=== PATIENT | female | born 1980 | race African-American/Black ===

== ENCOUNTER 2023-12-09 17:09 | Emergency (ER) | payer MEDICAID, OTHER ==
[~2023-12-09] VITALS: Ht 170.2 cm; Wt 96.0 kg
[2023-12-09 17:25] VITALS: O2SAT 99
[2023-12-09 17:44] VITALS: BP 131/84; PULSE 78; TEMP 98.3; O2SAT 99
[2023-12-09 18:45] VITALS: RESP 19
[2023-12-09] MEDS ORDERED: NAPR-681 MT (18:49)
[2023-12-09] MEDS ORDERED: AMOX1TAB16 MT (18:49)
[2023-12-09] MEDS ORDERED: HYDR-4001 MT (18:49)
[2023-12-09] MEDS ORDERED: SULF1TAB48 MT (18:52)
[2023-12-09] MEDS: TETANUS, DIPHTHERIA, PERTUSSIS VAC/PF 0.5ML (>10YR OLD) IM ONE (18:54)
[2023-12-09] MEDS: KETOROLAC 30MG/ML VIAL IM ONE (18:55)
[2023-12-09] MEDS: AMOXICILLIN/POTASSIUM CLAVULANATE 875/125MG TAB PO ONE (18:55)
[2023-12-09] MEDS: HYDROCODONE/ACETAMINOPHEN 5/325MG TABLET PO ONE (18:55)
== END 2023-12-09 19:53 | disposition home or self-care (01) ==
LOC: ER 17:09
DX: S61.411A Laceration without foreign body of right hand, initial encounter (principal); J45.909 Unspecified asthma, uncomplicated; Z88.5 Allergy status to narcotic agent; Z98.890 Other specified postprocedural states; Y04.0XXA Assault by unarmed brawl or fight, initial encounter; Y93.89 Activity, other specified; Y92.89 Other specified places as the place of occurrence of the external cause; Y99.8 Other external cause status
CPT/HCPCS: 90715; 90471; 96372; 99284; J1885; Z7610

== ENCOUNTER 2024-03-01 01:48 | Emergency (ER) | payer OTHER ==
[~2024-03-01] VITALS: Ht 170.2 cm; Wt 112.4 kg
[~2024-03-01 01:48] MED LIST: AMOX1TAB16 MT; HYDR-4001 MT; NAPR-681 MT; SULF1TAB48 MT
[2024-03-01 02:03] VITALS: BP 131/86; PULSE 85; RESP 16; O2SAT 100
[2024-03-01] MEDS ORDERED: KETOROLAC 30MG/ML VIAL IM ONE (02:15)
[2024-03-01 02:50] LABS: BASOPHILS % 0.7 % (0.0-2.0); DIFFERENTIAL COMMENT 0; HEMATOCRIT. 39.3 % (36.0-48.0); HEMOGLOBIN. 12.9 g/dL (12.0-16.0); LYMPHOCYTES % 31.4 % (20.0-50.0); MEAN CORPUSCULAR HEMOGLOBIN 25.5 pg (28.0-32.0); MEAN CORPUSCULAR HGB CONC 32.9 g/dL (31.0-37.0); MEAN CORPUSCULAR VOLUME 77.5 fL (81.0-99.0); MEAN PLATELET VOLUME 8.9 fl (7.4-10.4); MONOCYTES % 6.6 % (2.0-8.0); NEUTROPHILS % 59.3 % (40.0-76.0); PLATELET 226 x1000/uL (130-400); RED BLOOD CELL COUNT 5.07 mill/uL (4.2-5.4); RED CELL DISTRIBUTION WIDTH 18.2 % (11.6-14.6); WHITE BLOOD COUNT 8.1 x1000/uL (4.5-11.0)
[2024-03-01 02:55] LABS: CHLORIDE 102 mEq/L (98-107); POTASSIUM 3.1 mEq/L (3.5-5.1); SODIUM 138 mEq/L (136-145)
[2024-03-01 02:56] VITALS: TEMP 98.7
[2024-03-01 02:56] LABS: CARBON DIOXIDE 29 mEq/L (21-32)
[2024-03-01] MEDS: ACETAMINOPHEN 500MG TABLET PO ONE (02:56)
[2024-03-01 03:01] LABS: CREATININE 0.8 mg/dL (0.6-1.0); GLUCOSE 103 mg/dL (70-105); UREA NITROGEN BLOOD 5 mg/dL (9-23)
[2024-03-01 03:08] LABS: HCG SCREEN NEGATIVE
[2024-03-01 03:14] LABS: TROPONIN I HIGH SENSITIVITY < 4 ng/L (3.0-34)
[2024-03-01] MEDS: POTASSIUM CHLORIDE 20MEQ TABLET SR PO ONE (03:30)
== END 2024-03-01 03:44 | disposition left against medical advice (07) ==
LOC: ER 01:56
DX: R07.89 Other chest pain (principal); R51.9 Headache, unspecified; E87.6 Hypokalemia; J45.909 Unspecified asthma, uncomplicated; Z88.5 Allergy status to narcotic agent
CPT/HCPCS: 36415; 71045; 80048; 83880; 84484; 84703; 85025; 93005; 99285